=== PATIENT | male | born 1960 | race Caucasian/White ===

== ENCOUNTER 2019-10-27 08:55 | Day surgery (SDC) | payer BC, OTHER ==
[2019-10-27 09:23] VITALS: BMI 41.9
[2019-10-27 10:19] VITALS: PULSE 78
[2019-10-27 10:44] VITALS: BP 138/74; TEMP 97.7
--- NOTE | 2019-10-28 15:48 | PATH ---
Surgical Pathology Report Patient Name: RONIT RON [facility]. Rec. #: [id number] /Age/Gender: 1960 (Age: 59) / M Account: [id number] Location: [facility]-ENDOSCOPY Taken: 10/27/2019 Received: 10/27/2019 Reported: 10/28/2019 Physicians: JUSTO ARREDONDO Specimen(s) Received POLYP SIGMOID Clinical History Screening Postoperative diagnosis: Diverticulosis, colon polyp sigmoid, screening Final Diagnosis SIGMOID COLON, POLYP, BIOPSY: HYPERPLASTIC POLYP. Electronically Signed Gillian Garvin M.D. Gross Description Received in formalin, labeled "polyp sigmoid" are 2 jennings, irregular portions of soft tissue measuring 0.2 and 0.3 cm. in greatest dimension. The specimens are submitted in toto in one cassette. /10/27/2019 [facility]10/27/2019
== END 2019-10-27 10:45 | disposition home or self-care (01) ==
LOC: JASU-ENDO 08:55
PROVIDERS: ATTEND Internal Medicine Gastroenterology
PROC: 0DBN8ZX Excision of Sigmoid Colon, Via Natural or Artificial Opening Endoscopic, Diagnostic (ICD-10-PCS; principal; 2019-10-27 11:30)
DX: Z12.11 Encounter for screening for malignant neoplasm of colon (principal); D12.5 Benign neoplasm of sigmoid colon; K64.8 Other hemorrhoids; K57.30 Diverticulosis of large intestine without perforation or abscess without bleeding
CPT/HCPCS: 88305-TC